=== PATIENT | female | born 1955 | race Caucasian/White ===

== ENCOUNTER → 2016-10-29 | Outpatient (CLI) | payer OTHER ==
[~2016-10-29] MED LIST: ASPI81TA63; CALC12502; CLAR5CHW; DHA; FISH1000; IBUP600T; SIMV10TA2
--- NOTE | 2016-10-29 16:08 | REPMRS ---
Patient History The patient states she had a clinical breast exam in 2015.Patient is postmenopausal. No known family history of cancer. Digital Mammo Screening Bilat: October 29, 2016 - Exam #: [id number] Bilateral CC and MLO view(s) were taken. Technologist: Caitlyn Jacobson, Technologist Prior study comparison: September 26, 2015, bilateral digital mammo screening bilat performed at [facility]. October 06, 2014, digital mammo diagnostic bilateral, performed at [facility]. FINDINGS: There are scattered fibroglandular densities. There has been no change in the appearance of the mammogram from the prior studies. There is a mild amount of residual fibroglandular tissue which is fairly symmetric. There is no interval development of dominant mass, architectural distortion, or clustered microcalcification suggestive of malignancy. ASSESSMENT: BI-RADS/ACR category 1 mammogram. Negative. Recommendation Routine screening mammogram in 1 year (for women over age 40). This mammogram was interpreted with the aid of an FDA-approved computer-aided dectection system. Electronically Signed By: Garrett Nguyễn MD 10/29/16 [id number]
== END ==
LOC: M RAD 13:00
PROVIDERS: ATTEND Physician Assistant Medical
DX: Z12.31 Encounter for screening mammogram for malignant neoplasm of breast (principal)

== ENCOUNTER 2018-01-24 07:15 | Day surgery (SDC) | payer OTHER ==
[2018-01-24] MEDS: NS 1,000 ML IV (08:08)
[2018-01-24] MEDS ORDERED: LIDOCAINE 2% INJ 100 MG/5 ML SDV (FOR ANES.) As Ordered (08:40)
[2018-01-24] MEDS ORDERED: PROPOFOL 500 MG/50 ML VIAL As Ordered (08:40)
== END 2018-01-24 09:26 | disposition home or self-care (01) ==
LOC: M OPP 07:15
DX: Z12.11 Encounter for screening for malignant neoplasm of colon (principal); Z86.010 Personal history of colon polyps; D12.4 Benign neoplasm of descending colon; K64.8 Other hemorrhoids; I10 Essential (primary) hypertension; E78.5 Hyperlipidemia, unspecified; E03.9 Hypothyroidism, unspecified; E04.0 Nontoxic diffuse goiter; L71.8 Other rosacea; M85.80 Other specified disorders of bone density and structure, unspecified site; Z78.0 Asymptomatic menopausal state; Z87.891 Personal history of nicotine dependence; Z88.8 Allergy status to other drugs, medicaments and biological substances; Z88.0 Allergy status to penicillin; Z88.2 Allergy status to sulfonamides; Z79.899 Other long term (current) drug therapy; Z80.59 Family history of malignant neoplasm of other urinary tract organ
CPT/HCPCS: 45385

== ENCOUNTER → 2018-09-29 | Outpatient (CLI) | payer OTHER ==
[~2018-09-29] MED LIST changes: +CALC600T60 PO; +FLUTISP NARES; +LIPI20TA PO; +LISI-542 PO; +PROBCAP14 PO; +VITA2000 PO; +ZYRT10CA PO
--- NOTE | 2018-09-30 09:06 | REPMRS ---
Patient History The patient states she has not had a clinical breast exam in over a year. No known family history of cancer. Digital Mammo Screening Bilat: September 29, 2018 - Exam #: [id number] Bilateral CC and MLO view(s) were taken. Technologist: Marlene Pierce, Technologist Prior study comparison: October 29, 2016, bilateral digital mammo screening bilat performed at [facility]. September 26, 2015, bilateral digital mammo screening bilat performed at [facility]. October 06, 2014, digital mammo diagnostic bilateral, performed at [facility]. FINDINGS: There are scattered fibroglandular densities. There has been no change in the appearance of the mammogram from the prior studies. There is a mild amount of scattered fibroglandular density which is fairly symmetric. There is no interval development of dominant mass, architectural distortion, or clustered microcalcification suggestive of malignancy. Assessment: BI-RADS/ACR category 1 mammogram. Negative Mammogram. Recommendation Routine screening mammogram of both breasts in 1 year (for women over age 40). This patient's Lifetime Breast Cancer RIsk is estimated at 5.9 %. This mammogram was interpreted with the aid of an FDA-approved computer-aided dectection system. Electronically Signed By: Goyo Arce MD 09/30/18 0905
== END ==
LOC: M RAD 17:29
PROVIDERS: ATTEND Family Medicine
DX: Z12.31 Encounter for screening mammogram for malignant neoplasm of breast (principal)

== ENCOUNTER → 2023-12-19 | Outpatient (CLI) | payer MEDICARE, OTHER ==
[~2023-12-19] MED LIST changes: -LISI-542 PO; +LISI5TAB11 PO
== END ==
LOC: M WHC 16:44
PROVIDERS: ATTEND Internal Medicine
DX: Z12.31 Encounter for screening mammogram for malignant neoplasm of breast (principal)